=== PATIENT | male | born 1955 | race Caucasian/White ===

== ENCOUNTER 2016-12-05 09:51 | Observation (INO) | payer BC, OTHER ==
[2016-12-05] MEDS ORDERED: Aspirin Low Dose CHEW TAB* 81 MG PO ONE (10:45)
[2016-12-05] MEDS ORDERED: NS 0.9% 1000 ML* 1,000 ML IV SCH (10:45)
--- NOTE | 2016-12-05 10:58 | RAD ---
HISTORY: Chest pain COMPARISONS: July 23, 2014 VIEWS: 2: Frontal dual-energy and lateral views of the chest. FINDINGS: CARDIOMEDIASTINAL SILHOUETTE: The cardiomediastinal silhouette is normal. DARY: The dary are normal. PLEURA: The costophrenic angles are sharp. No pleural abnormalities are noted. LUNG PARENCHYMA: The lungs are clear. ABDOMEN: The upper abdomen is clear. There is no subphrenic gas. BONES AND SOFT TISSUES: No bone or soft tissue abnormalities are noted. OTHER: None. IMPRESSION: NO ACTIVE CARDIOPULMONARY DISEASE.
[2016-12-05 11:21] LABS: Hematocrit 43 % (42-52); Hemoglobin 14.8 g/dl (14.0-18.0); Mean Corpuscular HGB Conc 34 g/dl (31-36); Mean Corpuscular Hemoglobin 31 pg (27-31); Mean Corpuscular Volume 91 fL (80-94); Mean Platelet Volume 9 um3 (7.4-10.4); Red Blood Count 4.78 10^6/ul (4.0-5.4); Red Cell Distribution Width 14 % (10.5-15); White Blood Count 5.9 10^3/ul (3.5-10.8)
[2016-12-05 11:37] LABS: ALT 13 U/L (7-52); AST 19 U/L (13-39); Albumin 4.3 g/dL (3.2-5.2); Alkaline Phosphatase 48 U/L (34-104); Anion Gap 4 mmol/L (2-11); Blood Urea Nitrogen 15 mg/dL (6-24); C Reactive Protein < 1.00 mg/L (< 5.00); CO2 Carbon Dioxide 31 mmol/L (22-32); Calcium 9.7 mg/dL (8.6-10.3); Chloride 104 mmol/L (101-111); Creatine Kinase 340 U/L (10-223); EGFR African American 98.4 (>60); EGFR Non-African American 76.5 (>60); Globulin 2.8 g/dL (2-4); Glucose 98 mg/dL (70-100); Lipase 32 U/L (11.0-82.0); Magnesium 1.9 mg/dL (1.9-2.7); Potassium 4.1 mmol/L (3.5-5.0); Sodium 139 mmol/L (133-145); Total Protein 7.1 g/dL (6.4-8.9)
[2016-12-05 11:45] LABS: Troponin I 0.04 ng/mL (<0.04)
[2016-12-05 12:18] LABS: TSH (Thyroid Stimulating Horm) 1.59 mcIU/mL (0.34-5.60)
[2016-12-05] MEDS ORDERED: Acetaminophen TAB* 325 MG PO PRN (13:24)
[2016-12-05] MEDS ORDERED: Ondansetron INJ* 2 MG/ML VIAL IV PRN (13:24)
--- NOTE | 2016-12-05 13:29 | ED ---
Anca Muñoz Anna, scribed for Bear Rubio MD on 12/05/16 at 1040 . HPI Chest Pain - HPI Summary HPI Summary: Patient is a 61 y/o male coming to [facility] presenting with high blood pressure that began this morning. At 0830 this morning, his BP was 154/97. This concerned him. He just bought a blood pressure monitor. He has been on BP medication for a while. He has also had some intermittent mild pain in his front chest radiating to his back that began three days ago. The pain started in his left anterior chest and is described as a nagging pain. The pain is present right now. The pain was not alleviated by the use of antacids. The pain does not travel to his arm, neck, or jaw. The pain is not exacerbated by anything, including extended walks. Denies nausea, diaphoresis, SOB, leg pain. He has not had a stress test done previously. His family history is significant for CAD. He started taking a fungicide one week ago for his toenail fungus. Prior to this, a liver panel done by his [facility] nine days ago looked good. - History of Current Complaint Chief Complaint: EDChestPainROMI Time Seen by Provider: 12/05/16 10:27 Hx Obtained From: Patient Onset/Duration: Started Days Ago Initial Severity: Mild Current Severity: Mild Pain Intensity: 3 Pain Scale Used: 0-10 Numeric Chest Pain Location: Left Anterior Chest Pain Radiates: Yes Chest Pain Radiates To:: Back - Allergy/Home Medications Allergies/Adverse Reactions: Allergies Allergy/AdvReac Type Severity Reaction Status Date / Time No Known Allergies Allergy Verified 12/05/16 10:35 PMH/Surg Hx/FS Hx/Imm Hx Endocrine/Hematology History: Denies: Hx Diabetes Cardiovascular History: Reports: Hx Hypertension - TREATED WITH MEDICATION Denies: Hx Coronary Artery Disease, Hx Hypercholesterolemia, Hx Pacemaker/ICD History: Denies: Hx Dialysis, Hx Renal Disease Sensory History: Denies: Hx Hearing Aid Psychiatric History: Denies: Hx Panic Disorder - Surgical History Surgery Procedure, Year, and Place: APPENDIX 1980 Infectious Disease History: Denies: Traveled Outside the [place] in Last 30 Days - Family History Known Family History: Positive: Cardiac Disease - Social History Occupation: Employed Full-time Lives: With Family Alcohol Use: Occasionally Hx Substance Use: No Substance Use Type: Reports: None Hx Tobacco Use: No Smoking Status (MU): Never Smoked Tobacco Review of Systems Negative: Skin Diaphoresis Positive: Chest Pain, Other - High blood pressure Negative: Shortness Of Breath Negative: Nausea Positive: Myalgia - back pain All Other Systems Reviewed And Are Negative: Yes Physical Exam Triage Information Reviewed: Yes Vital Signs On Initial Exam: Initial Vitals Temp Pulse Resp BP Pulse Ox 97.8 F 102 16 184/106 100 12/05/16 09:58 12/05/16 09:58 12/05/16 09:58 12/05/16 09:58 12/05/16 09:58 Vital Signs Reviewed: Yes Appearance: Positive: Well-Appearing, No Pain Distress Skin: Positive: Warm, Skin Color Reflects Adequate Perfusion, Dry Head/Face: Positive: Normal Head/Face Inspection Eyes: Positive: EOMI, PAULINO ENT: Positive: Normal ENT inspection Neck: Positive: Supple, Nontender Respiratory/Lung Sounds: Positive: Clear to Auscultation, Breath Sounds Present Cardiovascular: Positive: RRR Abdomen Description: Positive: Nontender, Soft Bowel Sounds: Positive: Present Musculoskeletal: Positive: Other - Left lateral sternum tender to palpation. Calves non-tender.. Negative: Edema Left, Edema Right Neurological: Positive: Normal, Sensory/Motor Intact, Alert, Oriented to Person Place, Time Psychiatric: Positive: Affect/Mood Appropriate Diagnostics - Vital Signs Vital Signs Temp Pulse Resp BP Pulse Ox 12/05/16 09:58 97.8 F 102 16 184/106 100 - Laboratory Lab Results: Lab Results 12/05/16 12/05/16 12/05/16 Range/Units 11:08 11:08 11:08 WBC 5.9 (3.5-10.8) 10^3/ul RBC 4.78 (4.0-5.4) 10^6/ul Hgb 14.8 (14.0-18.0) g/dl Hct 43 (42-52) % MCV 91 (80-94) fL MCH 31 (27-31) pg MCHC 34 (31-36) g/dl RDW 14 (10.5-15) % Plt Count 183 (150-450) 10^3/ul MPV 9 (7.4-10.4) um3 Neut % (Auto) 66.0 (38-83) % Lymph % (Auto) 21.1 L (25-47) % Mclennan % (Auto) 8.1 (1-9) % Eos % (Auto) 3.4 (0-6) % Baso % (Auto) 1.4 (0-2) % Absolute Neuts (auto) 3.9 (1.5-7.7) 10^3/ul Absolute Lymphs (auto) 1.2 (1.0-4.8) 10^3/ul Absolute Monos (auto) 0.5 (0-0.8) 10^3/ul Absolute Eos (auto) 0.2 (0-0.6) 10^3/ul Absolute Basos (auto) 0.1 (0-0.2) 10^3/ul Absolute Nucleated RBC 0.01 10^3/ul Nucleated RBC % 0.1 INR (Anticoag Therapy) 1.00 (0.89-1.11) APTT 32.9 (26.0-36.3) seconds D-Dimer, Quantitative < 200 (Less Than 230) ng/mL Sodium 139 (133-145) mmol/L Potassium 4.1 (3.5-5.0) mmol/L Chloride 104 (101-111) mmol/L Carbon Dioxide 31 (22-32) mmol/L Anion Gap 4 (2-11) mmol/L BUN 15 (6-24) mg/dL Creatinine 1.00 (0.67-1.17) mg/dL Est GFR ( Amer) 98.4 (>60) Est GFR (Non-Af Amer) 76.5 (>60) BUN/Creatinine Ratio 15.0 (8-20) Glucose 98 (70-100) mg/dL Lactic Acid (0.5-2.0) mmol/L Calcium 9.7 (8.6-10.3) mg/dL Magnesium 1.9 (1.9-2.7) mg/dL Total Bilirubin 0.70 (0.2-1.0) mg/dL AST 19 (13-39) U/L ALT 13 (7-52) U/L Alkaline Phosphatase 48 (34-104) U/L Total Creatine Kinase 340 H (10-223) U/L CK-MB (CK-2) 1.6 (0.6-6.3) ng/mL Troponin I 0.04 H* (<0.04) ng/mL C-Reactive Protein < 1.00 (< 5.00) mg/L B-Natriuretic Peptide ( - 100) pg/mL Total Protein 7.1 (6.4-8.9) g/dL Albumin 4.3 (3.2-5.2) g/dL Globulin 2.8 (2-4) g/dL Albumin/Globulin Ratio 1.5 (1-3) Lipase 32 (11.0-82.0) U/L TSH 1.59 (0.34-5.60) mcIU/mL 12/05/16 12/05/16 Range/Units 11:08 11:08 WBC (3.5-10.8) 10^3/ul RBC (4.0-5.4) 10^6/ul Hgb (14.0-18.0) g/dl Hct (42-52) % MCV (80-94) fL MCH (27-31) pg MCHC (31-36) g/dl RDW (10.5-15) % Plt Count (150-450) 10^3/ul MPV (7.4-10.4) um3 Neut % (Auto) (38-83) % Lymph % (Auto) (25-47) % Mclennan % (Auto) (1-9) % Eos % (Auto) (0-6) % Baso % (Auto) (0-2) % Absolute Neuts (auto) (1.5-7.7) 10^3/ul Absolute Lymphs (auto) (1.0-4.8) 10^3/ul Absolute Monos (auto) (0-0.8) 10^3/ul Absolute Eos (auto) (0-0.6) 10^3/ul Absolute Basos (auto) (0-0.2) 10^3/ul Absolute Nucleated RBC 10^3/ul Nucleated RBC % INR (Anticoag Therapy) (0.89-1.11) APTT (26.0-36.3) seconds D-Dimer, Quantitative (Less Than 230) ng/mL Sodium (133-145) mmol/L Potassium (3.5-5.0) mmol/L Chloride (101-111) mmol/L Carbon Dioxide (22-32) mmol/L Anion Gap (2-11) mmol/L BUN (6-24) mg/dL Creatinine (0.67-1.17) mg/dL Est GFR ( Amer) (>60) Est GFR (Non-Af Amer) (>60) BUN/Creatinine Ratio (8-20) Glucose (70-100) mg/dL Lactic Acid 1.2 (0.5-2.0) mmol/L Calcium (8.6-10.3) mg/dL Magnesium (1.9-2.7) mg/dL Total Bilirubin (0.2-1.0) mg/dL AST (13-39) U/L ALT (7-52) U/L Alkaline Phosphatase (34-104) U/L Total Creatine Kinase (10-223) U/L CK-MB (CK-2) (0.6-6.3) ng/mL Troponin I (<0.04) ng/mL C-Reactive Protein (< 5.00) mg/L B-Natriuretic Peptide 26 ( - 100) pg/mL Total Protein (6.4-8.9) g/dL Albumin (3.2-5.2) g/dL Globulin (2-4) g/dL Albumin/Globulin Ratio (1-3) Lipase (11.0-82.0) U/L TSH (0.34-5.60) mcIU/mL Result Diagrams: 12/05/16 11:08 12/05/16 11:08 Lab Statement: Any lab studies that have been ordered have been reviewed, and results considered in the medical decision making process. - Radiology CXR Xray Interpretation: No Acute Changes Radiology Interpretation Completed By: Radiologist - IMPRESSION: NO ACTIVE CARDIOPULMONARY DISEASE. - EKG 1005 Cardiac Rate: NL - 76 bpm EKG Rhythm: Sinus Rhythm Ectopy: None EKG Interpretation: LVH Chest Pain Course/Dx - Course Course Of Treatment: NO CRITICAL CARE TIME. Assessment/Plan: WELL IN ED. ADMIT HOSPITALIST STABLE. - Diagnoses Provider Diagnoses: Chest pain - Provider Notifications Discussed Care Of Patient With: Dr. Candelaria (hospitalist) at 1245. Agrees to accept patient for admission. Discharge - Discharge Plan Condition: Stable Disposition: ADMITTED TO [facility] Referrals: Rima Jameson NP [Primary Care Provider] - The documentation as recorded by the Anca ng Anna accurately reflects the service I personally performed and the decisions made by me, Bear Rubio MD.
[2016-12-05] MEDS ORDERED: Hydrochlorothiazide TAB* 25 MG PO ONE (13:32)
[2016-12-05 13:56] LABS: Urine Bilirubin Negative (Negative); Urine Glucose Negative (Negative); Urine Nitrite Negative (Negative)
--- NOTE | 2016-12-05 22:20 | HP ---
ADMISSION HISTORY AND PHYSICAL: DATE OF ADMISSION: 12/05/16 PRIMARY CARE PROVIDER: Rima Jameson NP HEALTHCARE PROXY: His , Gwendolyn Martinez. CODE STATUS: Full. SOURCE OF INFORMATION: History obtained from interview with the patient, review of [facility] and medical records. RELIABILITY: Fair. CHIEF COMPLAINT: Chest discomfort. HISTORY OF PRESENT ILLNESS: This is a 61-year-old man, past medical history of uncontrolled hypertension; history of [id number] JOSE ROBERTO, not on noninvasive positive pressure ventilation; dyslipidemia, not on medications; had been in his usual state of health until 3 days prior to presentation, started to develop left substernal discomfort described as a burning and as a "nagging" that lasted 1 to 2 hours. It occurred multiple times throughout the day. He noticed additional "nagging" pain on his back, between his shoulders, at the base of his neck that was coming and going. He notes no other associated signs or symptoms including nausea, vomiting, shortness of breath, diaphoresis, loss of consciousness, near loss of consciousness, or palpitations. He works as a professor at [employer], and in general, his life is very stressful which has not been changed recently. He notes he has a very busy day tomorrow and then will be traveling for 2 weeks starting Tuesday and because of his hectic schedule upcoming, he thought he should be checked out in the emergency room today. Additionally, he checked his blood pressure at home and was noted to be elevated at 154/97, which he noted is the highest it has ever been for him prompting his presentation to the emergency room. He notes he wears a pedometer , takes on average 12,000 steps per day, and did not notice any chest discomfort , although he does equivocate and says "well, not like this," indicating he may have experienced some discomfort in the past. When seen by this author, he was chest pain-free and had no complaints other than anxiety surrounding hospital stay given upcoming busy day and travel. PAST MEDICAL HISTORY: 1. Obstructive sleep apnea, not on therapy, tested in 2008. 2. Hypertension. 3. Eosinophilia with a negative workup. 4. Dyslipidemia. 5. Herpes. 6. Ischemic optic neuropathy. 7. Benign prostatic hypertrophy. 8. Onychomycosis. 9. Appendectomy in 1981. MEDICATIONS: 1. Diovan 160 mg daily, recently increased from 80 to 160 on 11/26/16. 2. Terbinafine 250 mg daily for his onychomycosis. 3. Econazole nitrate 1% as directed. 4. Doxycycline 100 mg twice daily for tick bites. 5. Epinephrine injected as needed for allergic reaction. 6. Valtrex 500 mg twice daily as needed. 7. Nasonex 50 mcg 2 sprays both nostrils twice daily. 8. Epinephrine as noted above for bee stings. ALLERGIES: No known drug allergies. FAMILY HISTORY: Father from an [place] at age 71. Mother: Medical history noncontributory. SOCIAL HISTORY: Works as a [employer] professor in [email or web address]. No tobacco. Drinks about 3 glasses of wine per week. No illicits. REVIEW OF SYSTEMS: Include substernal chest discomfort as well as back discomfort. Recently elevated blood pressure at home. Otherwise, all other systems reviewed and negative. PHYSICAL EXAMINATION GENERAL: Well-appearing gentleman sitting up in bed, interactive, pleasant, in no apparent distress. VITAL SIGNS: When seen by this author, 164/102, heart rate 70, respiratory rate 16, 98% on room air, T-max in the emergency room 98.8. HEENT: Oropharynx is clear. Moist mucous membranes. Sclerae anicteric. NECK: JVD is elevated to the angle of the ear. No cervical or supraclavicular lymphadenopathy. HEART: Regular rate and rhythm. He has a 2/6 blowing diastolic murmur, louder in the right upper sternal border, loudest with Valsalva. ABDOMEN: Soft, nontender, nondistended. EXTREMITIES: Warm and well perfused without clubbing, cyanosis, or edema. Less than 2-second capillary refill. Good skin turgor. NEUROLOGIC: He is alert and oriented x3. His cranial nerves are intact. No apparent depression or agitation, although notable anxiety. LABORATORY DATA AND DIAGNOSTIC STUDIES: Labs reviewed. Troponin I 0.04. CRP less than 1. BNP 26. Total CK 340. Lactic acid 1.2. BUN 15, creatinine 1.0. D-dimer less than 200. White blood cell count 5.9, hemoglobin 14.8, platelets 180. Data reviewed. Chest x-ray, impression: No cardiopulmonary disease. EKG: Normal sinus rhythm, 70 beats per minute, normal limited axis, intervals, evidence of left ventricular hypertrophy, 7-mm ST depressions in aVF alone. ASSESSMENT AND PLAN: This is a 61-year-old man presenting to the hospital with substernal chest discomfort for the last 3 days associated with a troponin of 0.04 in the setting of uncontrolled hypertension. Chest discomfort, concern for cardiac ischemia: Specifically not elevated troponin, although in the setting of left ventricular hypertrophy and high blood pressure, it certainly could represent demand ischemia, although hypertensive urgency with elevated blood pressure greater than 180 and elevated troponin, this would also be a substitute diagnosis. We will trend troponins, repeat EKGs, plan on stress test in the morning, exercise stress with nuclear imaging. Check cholesterol panel in the morning. Continue with aspirin. Hypertension: Add hydrochlorothiazide 25 now. Continue Diovan. Obstructive sleep apnea is untreated: Continue to monitor. Discuss therapy as an outpatient. Dyslipidemia: Check lipids in the morning. DVT prophylaxis: Low risk. Ambulate ad parker. CC: Rima Jameson NP* [id number]/[facility] #: [id number] MTDD
[2016-12-06] MEDS ORDERED: Hydrochlorothiazide TAB* 25 MG PO SCH (09:00)
[2016-12-06] MEDS ORDERED: TERBINAFINE HCL 250 MG PO SCH (09:00)
[2016-12-06] MEDS ORDERED: Valsartan TAB* 160 MG PO SCH (09:00)
[2016-12-06] MEDS ORDERED: Aspirin EC Low Dose* 81 MG TAB.EC PO SCH (09:00)
[2016-12-06 09:04] VITALS: BP 131/92
--- NOTE | 2016-12-06 12:32 | RAD ---
INDICATION: Chest pain. COMPARISON: There are no prior studies available for comparison. Technique: A single day myocardial perfusion stress study was performed. Initially a resting study was performed. The patient was given an intravenous injection of 10.1 mCi of technetium 99m tetrofosmin and and the heart was imaged in multiple projections. The patient returned later in the day and under the direction of Dr. Hassan, the patient was exercised to a peak heart rate of 156 beats per minute which was 97% of the maximum predicted heart rate. Subsequently the patient was given intravenous injection of 25.1 mCi of technetium 99m tetrofosmin and the heart was imaged in multiple projections. Images were reconstructed in the axial, sagittal and coronal planes and in a 3-D format. FINDINGS: There appears to be normal wall motion and myocardial thickening. The left ventricular ejection fraction was calculated to be 62%. Review of the images demonstrates normal distribution of radiopharmaceutical. IMPRESSION: NO EVIDENCE FOR INFARCT OR ISCHEMIA. ASSESSMENT: Low risk. Based on imaging criteria from ACC/AHA 2002 Guideline Update for the Management of Patients With Chronic Stable Angina Table 23. Noninvasive Risk Stratification.
[2016-12-06] MEDS ORDERED: DOXYcycline CAP(*) 100 MG PO ONE (13:14)
--- NOTE | 2016-12-07 08:25 | DS ---
DISCHARGE SUMMARY: DATE OF ADMISSION: 12/05/16 DATE OF DISCHARGE: 12/06/16 PRIMARY CARE PROVIDER: Rima Jameson, nurse practitioner DISCHARGING PROVIDER: HENRY Raza SUPERVISING PHYSICIAN: Dr. Patti Saini* (dictated by HENRY Raza). PRIMARY DISCHARGE DIAGNOSES: 1. Chest pain without evidence of acute coronary syndrome. 2. Hypertension. SECONDARY DISCHARGE DIAGNOSES: 1. Obstructive sleep apnea, noncompliant with CPAP. 2. Hyperlipidemia. 3. Benign prostatic hypertrophy. 4. Tick bite - prophylaxed with doxycycline. DISCHARGE MEDICATIONS: 1. Hydrochlorothiazide 25 mg p.o. daily. 2. Terbinafine 250 mg p.o. daily. 3. Valsartan 160 mg p.o. daily. MEDICATION CHANGES: Start hydrochlorothiazide. HOSPITAL IMAGIN. Chest x-ray shows no acute process. 2. EKG shows LVH by voltage criteria and some J-point elevation. 3. Nuclear stress test is read as a low-risk study without evidence of ischemia or infarct. Normal ejection fraction at 62%. HOSPITAL COURSE: This is an 61-year-old gentleman with hypertension, hyperlipidemia, and obstructive sleep apnea who presented to the emergency department with complaints of chest pain and concern for hypertension. The patient had been having some kind of nonspecific left lower chest pain that had been waxing and waning for several days prior to admission. He was also recently seen by his primary care provider and noted to be hypertensive and his dose of Diovan had been doubled from 80 mg to 160 mg. He had been monitoring his blood pressure at home for several days prior to admission and noted that for majority of the time systolic pressures were in the 130s, but then over the 24 hours or so before he came to the emergency department that they had been more consistently elevated up into the 150s. The patient denied associated shortness of breath, nausea, vomiting or diarrhea. No recent illness or cough. When the patient reached the emergency department, systolic pressure was measured at 184 mmHg. His initial EKG showed sinus rhythm without acute ischemic changes. Initial troponin was mildly elevated at 0.04. The patient was subsequently admitted for observation for continuous telemetry monitoring, serial troponins, and stress testing. Serial troponins remained flat. Second check was 0.03 and third was 0.04 without changes on EKG. The patient continued to have some intermittent left- sided chest pain that seems to be near the costophrenic border, not necessarily associated with eating. He underwent a nuclear stress test, which was read as a low-risk study without evidence of ischemia or infarct. The patient was started on hydrochlorothiazide after his initial evaluation in addition to his higher dose of valsartan. Also of note on initial physical exam, he had a subtle diastolic murmur appreciated and an outpatient echocardiogram is recommended. DISPOSITION: The patient is being discharged to home with medication changes as outlined above. Recommend follow up with primary care and continued monitoring of blood pressure at home. He requires an outpatient echocardiogram. HENRY RAZA CC: Rima Jameson NP* [id number]/[facility] #: [id number] MTDD
== END 2016-12-06 14:36 | disposition home or self-care (01) ==
LOC: ED 09:51 → MEDTELE 13:24
PROVIDERS: ADMIT Internal Medicine; ATTEND Internal Medicine
DX: R07.9 Chest pain, unspecified (principal); I10 Essential (primary) hypertension; G47.33 Obstructive sleep apnea (adult) (pediatric); E78.5 Hyperlipidemia, unspecified; N40.0 Benign prostatic hyperplasia without lower urinary tract symptoms; I51.7 Cardiomegaly; Z79.899 Other long term (current) drug therapy
CPT/HCPCS: 36415; 71020; 78452; 80053; 81003; 82550; 82553; 83605; 83690; 83735; 83880; 84443; 84484; 85025; 85379; 85610; 85730; 86140; 93005; 93017; 99284; A9270-GY; A9502; G0378